=== PATIENT | male | born 1995 | race Two or more races ===

== ENCOUNTER 2023-01-02 09:27 | Emergency (ER) | payer SELFPAY ==
[~2023-01-02] VITALS: Ht 170.2 cm; Wt 52.0 kg
[2023-01-02 09:36] VITALS: BP 129/80; PULSE 99; RESP 16; TEMP 99.6; O2SAT 97
[2023-01-02 12:22] LABS: Rapid Strep A Screen-Throat Negative
[2023-01-02] MEDS ORDERED: METH4PAK PO (12:29)
[2023-01-02] MEDS ORDERED: CEPH500C PO (12:29)
[2023-01-02] MEDS ORDERED: LIDO2SOL18 MT (12:29)
== END 2023-01-02 13:02 | disposition home or self-care (01) ==
LOC: ER 09:27
DX: J02.9 Acute pharyngitis, unspecified (principal)
CPT/HCPCS: 36415; 86308; 87070; 87880; 99283; J7030